=== PATIENT | female | born 2000 | race Hispanic/Latino ===

== ENCOUNTER 2021-10-07 17:06 | Emergency (ER) | payer OTHER ==
[~2021-10-07] VITALS: Ht 160 cm; Wt 70.9 kg
[2021-10-07] MEDS ORDERED: CEPHALEXIN500 MG PO (17:39)
[2021-10-07] MEDS ORDERED: PYRIDIUM200 MG PO (17:40)
== END 2021-10-07 17:51 | disposition home or self-care (01) ==
LOC: FSED 17:25
DX: O23.41 Unspecified infection of urinary tract in pregnancy, first trimester (principal); R30.0 Dysuria; R10.30 Lower abdominal pain, unspecified; M32.9 Systemic lupus erythematosus, unspecified
CPT/HCPCS: 81003; 99283